=== PATIENT | female | born 1930 | race Caucasian/White ===

== ENCOUNTER 2016-03-15 15:14 | Inpatient (IN) | payer OTHER ==
--- NOTE | 2016-03-15 15:29 | PDOC ---
History of Present Illness - General Chief Complaint: Irregular Heart Beat Stated Complaint: COUGH Time Seen by Provider: 03/15/16 15:18 - History of Present Illness Initial Comments: 03/15/16 15:31 85-year-old female with a past medical history of hypertension, hyperlipidemia, anemia, and gout She has no cardiac history, and no prior history of atrial fibrillation Patient is complaining of a one-week history of cough, associated with a one- week history of progressive dyspnea on exertion The cough is occasionally productive of white sputum, but mostly non-productive She denies any fevers or chills She states that she did have the flu vaccine and the pneumonia vaccine She denies any feelings of palpitations, or chest pain She denies any leg swelling or calf pain She denies any nausea vomiting or diarrhea She denies any sore throat or earache She states she went to her primary care physician's office today, and was found to be in atrial fibrillation and sent to the emergency department She denies feeling palpitations at all Remainder the review of systems is negative Past History - Past Medical History Allergies/Adverse Reactions: Allergies Allergy/AdvReac Type Severity Reaction Status Date / Time No Known Drug Allergies Allergy Verified 03/15/16 15:19 Home Medications: Ambulatory Orders Cholecalciferol (Vitamin D3) [Vitamin D3] 2,000 unit PO DAILY 06/17/14 Pravastatin Sodium 20 mg PO HS 06/17/14 Vitamin B Complex [Super B Complex] 1 tab PO DAILY 06/17/14 Acetaminophen [Tylenol .Regular Strength -] 650 mg PO Q4H PRN #0 tablet Cyanocobalamin [Vitamin B12 -] 500 mcg PO MoWeFr@1000 #0 tablet 06/27/14 Febuxostat [Uloric -] 40 mg PO DAILY #0 tab 06/27/14 Levothyroxine [Synthroid -] 112 mcg PO DAILY@0700 #0 tablet 06/27/14 Losartan Potassium [Cozaar -] 25 mg PO DAILY #0 tablet 06/27/14 Polyethylene Glycol 3350 [Miralax 119 gm Btl -] 17 gm PO DAILY #0 bottle Sennosides/Docusate Sodium [Pericolace -] 2 each PO HS PRN #0 tablet 06/27/14 Vitamin B Comp W-C [Total B with C -] 1 each PO DAILY #0 tablet 06/27/14 Duloxetine HCl [Cymbalta -] 30 mg PO HS 03/15/16 Metoprolol Succinate [Toprol XL -] 25 mg PO HS 03/15/16 Anemia: No Asthma: No Cancer: No Cardiac Disorders: No CVA: No COPD: No CHF: No Dementia: No Diabetes: No GI Disorders: No Disorders: No HTN: Yes Hypercholesterolemia: Yes Liver Disease: No Seizures: No Thyroid Disease: Yes (HYPO) - Surgical History Abdominal Surgery: No Appendectomy: Yes Cardiac Surgery: No Cholecystectomy: No Lung Surgery: No Neurologic Surgery: No Orthopedic Surgery: No - Psycho/Social/Smoking Cessation Hx Smoking History: Former smoker Have you smoked in the past 12 months: No If you are a former smoker, when did you quit?: 2003 Hx Alcohol Use: Yes (SOCIAL) Drug/Substance Use Hx: No Substance Use Type: Alcohol Hx Substance Use Treatment: No Review of Systems - Review of Systems Able to Perform ROS?: Yes Comments:: 03/15/16 15:33 12 point review of systems is as per history of present illness and otherwise negative *Physical Exam - Physical Exam Comments: 03/15/16 15:33 Physical exam GENERAL: The patient is awake, alert, and fully oriented, and in no apparent distress. HEAD: Normal with no signs of trauma. EYES: Sclera anicteric ENT: Mucous membranes moist NECK: Normal range of motion, supple LUNGS: Breath sounds equal, clear to auscultation bilaterally. No wheezes, and no crackles. HEART: Irregularly irregular rate and rhythm, normal S1 and S2 without murmur, rub or gallop. ABDOMEN: Soft, nontender, normoactive bowel sounds. No guarding, no rebound. No masses appreciated. EXTREMITIES: Normal range of motion, no edema. No clubbing or cyanosis. No cords, erythema, or tenderness. No calf tenderness or pedal edema NEUROLOGICAL: Cranial nerves II through XII grossly intact. Normal speech, normal gait. PSYCH: Normal mood, normal affect. SKIN: Warm, Dry, normal turgor, no rashes or lesions noted. ED Treatment Course - LABORATORY CBC & Chemistry Diagram: 03/16/16 07:00 03/16/16 07:00 Medical Decision Making - Medical Decision Making 03/15/16 15:57 EKG Atrial fibrillation with a ventricular response rate of 95 Normal axis Normal QRS duration QTc Nonspecific ST-T waves 03/15/16 15:59 [id number] score 4-indicating need for anticoagulation 03/15/16 16:40 Chest c-ape-[id number] heart with mild pulmonary vascular congestion 03/15/16 17:[address] HusainUuvv-[id number]-ulfgav with Eliquis and IV Lasix Laboratory Results - last 24 hr 03/15/16 03/15/16 03/15/16 15:33 15:44 15:44 WBC 5.5 RBC 4.59 Hgb 13.8 Hct 42.3 MCV 92.1 MCHC 32.5 RDW 12.8 Plt Count 372 MPV 8.1 INR 1.05 Sodium 135 L Potassium 4.8 Chloride 99 Carbon Dioxide 26 Anion Gap 10 BUN 29 H Creatinine 1.4 H Creat Clearance w eGFR 35.82 Random Glucose 97 Calcium 9.4 Magnesium 1.7 L D Total Bilirubin 0.6 AST 28 ALT 19 Alkaline Phosphatase 64 Creatine Kinase Troponin I Total Protein 7.0 Albumin 3.5 03/15/16 15:44 WBC RBC Hgb Hct MCV MCHC RDW Plt Count MPV INR Sodium Potassium Chloride Carbon Dioxide Anion Gap BUN Creatinine Creat Clearance w eGFR Random Glucose Calcium Magnesium Total Bilirubin AST ALT Alkaline Phosphatase Creatine Kinase 165 H Troponin I < 0.03 L Total Protein Albumin 03/15/16 17:40 Case and all results discussed with Dr. Hansen Would like the patient admitted to Dr. Juan's service, and he will put in the orders Impression- New-onset atrial fibrillation, mild congestive heart failure, dyspnea on exertion *DC/Admit/Observation/Transfer Diagnosis at time of Disposition: Atrial fibrillation, new onset, Dyspnea on exertion Congestive heart failure (CHF) Qualifiers: Congestive heart failure type: unspecified congestive heart failure type Congestive heart failure chronicity: acute Qualified Code(s): I50.9 - Heart failure, unspecified - Discharge Dispostion Condition at time of disposition: Stable Admit: Yes
[2016-03-15 16:22] LABS: INR 1.05 (0.82-1.09); PROTHROMBIN TIME (PATIENT) 11.4 SEC (10.2-13.0)
[2016-03-15 16:32] LABS: CPK(DFH) 165 IU/L (26-140)
[2016-03-15 16:33] LABS: ALBUMIN 3.5 g/dl (3.5-5.0); BILIRUBIN,TOTAL 0.6 mg/dl (0.2-1.0); CALCIUM 9.4 mg/dl (8.4-10.2); CREATININE 1.4 mg/dl (0.6-1.3); MAGNESIUM 1.7 mg/dL (1.8-2.4)
[2016-03-15 16:38] LABS: MCHC 32.5 g/dl (32.0-36.0); MEAN CELL VOLUME 92.1 fl (80-96); MEAN PLT VOLUME 8.1 fl (7.5-11.1); PLATELET COUNT 372 K/MM3 (134-434); RDW 12.8 % (11.6-15.6); WHITE BLOOD COUNT 5.5 K/mm3 (4.0-10.0)
[2016-03-15] MEDS ORDERED: FUROSEMIDE 40 MG/4 ML INJECTABLE VIAL IVPUSH ONE (16:41)
[2016-03-15 17:00] LABS: TROPONIN I (DFP) < 0.03 ng/ml (0.03-0.50)
[2016-03-15] MEDS ORDERED: APIXABAN 2.5 MG TABLET PO ONE (17:18)
[2016-03-15] MEDS ORDERED: FUROSEMIDE 40 MG/4 ML INJECTABLE VIAL ONE (17:20)
[2016-03-15 17:28] LABS: CK MB 3.6 ng/ml (0.3-4.0)
[2016-03-15 18:26] LABS: URINE APPEARANCE Clear; URINE BILIRUBIN Negative (NEGATIVE); URINE BLOOD Negative (NEGATIVE); URINE GLUCOSE (UA) Negative (NEGATIVE); URINE KETONE Negative (NEGATIVE); URINE LEUK ESTERASE Negative (NEGATIVE); URINE NITRITE Negative (NEGATIVE); URINE PROTEIN Negative (NEGATIVE); URINE UROBILINOGEN 0.2 E.U/dl (0.2-1.0)
[2016-03-15 18:30] LABS: URINE COLOR YELLOW
[2016-03-15] MEDS ORDERED: SENNOSIDES/DOCUSATE COMBO (SENNA PLUS) TABLET (UD) PO PRN (18:54)
[2016-03-15] MEDS ORDERED: ACETAMINOPHEN 325 MG TABLET (FP) PO PRN (18:54)
[2016-03-15 19:07] VITALS: BMI 31.0
[2016-03-15] MEDS ORDERED: METOPROLOL SUCCINATE 25 MG TAB.SR.24H (FP) PO SCH (22:00)
[2016-03-15] MEDS ORDERED: APIXABAN 2.5 MG TABLET PO SCH (22:00)
[2016-03-15] MEDS: METOPROLOL TARTRATE 25 MG TABLET (FP) PO SCH (22:02)
[2016-03-15] MEDS: DULoxetine HCL 30 MG CAPSULE.DR (FP) PO SCH (22:03)
[2016-03-15] MEDS: ATORVASTATIN CA 10 MG TABLET (FP) PO SCH (22:04)
[2016-03-16] MEDS: LEVOTHYROXINE NA 112 MCG TABLET (FP) PO SCH (06:10)
[2016-03-16] MEDS ORDERED: PT OWN MED DRAWER 7, Y5N ONE ×2 (09:17→12:37)
[2016-03-16 09:21] LABS: BASOPHIL 0.5 % (0-2.0); MCH 29.8 pg (25.7-33.7); MCHC 32.6 g/dl (32.0-36.0); MEAN CELL VOLUME 91.2 fl (80-96); MEAN PLT VOLUME 8.7 fl (7.5-11.1); NEUTROPHILS 66.8 % (42.8-82.8); PLATELET COUNT 376 K/MM3 (134-434); RDW 12.9 % (11.6-15.6); WHITE BLOOD COUNT 6.2 K/mm3 (4.0-10.0)
[2016-03-16] MEDS: LOSARTAN POTASSIUM 25 MG TABLET PO SCH (09:24)
[2016-03-16] MEDS: METOPROLOL TARTRATE 25 MG TABLET (FP) PO SCH (09:24)
[2016-03-16] MEDS: FEBUXOSTAT 40 MG TAB PO SCH (09:24)
[2016-03-16] MEDS: PANTOPRAZOLE 40 MG TABLET (FP) PO SCH (09:24)
[2016-03-16] MEDS: CHOLECALCIFEROL (VITAMIN D3) 1,000 UNIT TABLET (FP) PO SCH (09:25)
[2016-03-16] MEDS: POLYETHYLENE GLYCOL 3350 119 GM BTL PO SCH (09:25)
[2016-03-16] MEDS: FUROSEMIDE 40 MG/4 ML INJECTABLE VIAL IVPB SCH (09:25)
[2016-03-16 09:32] LABS: ALBUMIN 3.4 g/dl (3.5-5.0); BILIRUBIN,TOTAL 0.7 mg/dl (0.2-1.0); CREATININE 1.2 mg/dl (0.6-1.3); TOT PROT 6.8 g/dl (6.4-8.3)
--- NOTE | 2016-03-16 09:49 | HP ---
Admitting History and Physical - Primary Care Physician PCP: Antonio Elena - Admission Chief Complaint: I had trouble breathing History of Present Illness: Ms Danielle is a very pleasant 85 year old female who comes in with complaints of coughing and shortness of breath. She notes last week she was coughing a lot , it was non-productive. Then over the weekend she noted she had severe dyspnea with minimal exertion. She says she would walk to the bathroom and become short of breath, she would need to rest for her breathing to improve. She denies fevers, chills, lightheadedness, dizziness, passing out, chest pain or pressure , orthopnea, nausea, vomiting, diarrhea, constipation, difficulty or pain on urination, or swelling. She was evaluated by Dr Elena and was found to be in atrial fibrillation which is new. She was sent in for further evaluation. Currently she is feeling fine and is without complaint, however she has not gotten up to walk yet today. History Source: Patient Limitations to Obtaining History: No Limitations - Past Medical History Cardiovascular: Yes: HTN, Hyperlipdemia ...: No Endocrine: Yes: Hypothyroidism - Past Surgical History Past Surgical History: Yes: Joint Replacement - Smoking History Smoking history: Former smoker Have you smoked in the past 12 months: No Aproximately how many cigarettes per day: 20 If you are a former smoker, when did you quit?: 2003 - Alcohol/Substance Use Hx Alcohol Use: Yes (SOCIAL) History of Substance Use: reports: None - Social History ADL: Independent History of Recent Travel: No Home Medications - Allergies Allergies/Adverse Reactions: Allergies Allergy/AdvReac Type Severity Reaction Status Date / Time No Known Drug Allergies Allergy Verified 03/15/16 15:19 - Home Medications Home Medications: Ambulatory Orders Cholecalciferol (Vitamin D3) [Vitamin D3] 2,000 unit PO DAILY 06/17/14 Pravastatin Sodium 20 mg PO HS 06/17/14 Vitamin B Complex [Super B Complex] 1 tab PO DAILY 06/17/14 Acetaminophen [Tylenol .Regular Strength -] 650 mg PO Q4H PRN #0 tablet Cyanocobalamin [Vitamin B12 -] 500 mcg PO MoWeFr@1000 #0 tablet 06/27/14 Febuxostat [Uloric -] 40 mg PO DAILY #0 tab 06/27/14 Levothyroxine [Synthroid -] 112 mcg PO DAILY@0700 #0 tablet 06/27/14 Losartan Potassium [Cozaar -] 25 mg PO DAILY #0 tablet 06/27/14 Polyethylene Glycol 3350 [Miralax 119 gm Btl -] 17 gm PO DAILY #0 bottle Sennosides/Docusate Sodium [Pericolace -] 2 each PO HS PRN #0 tablet 06/27/14 Vitamin B Comp W-C [Total B with C -] 1 each PO DAILY #0 tablet 06/27/14 Duloxetine HCl [Cymbalta -] 30 mg PO HS 03/15/16 Metoprolol Succinate [Toprol XL -] 25 mg PO HS 03/15/16 Family Disease History - Family Disease History Family History: Unremarkable Review of Systems Findings/Remarks: Full review of systems obtained, as per HPI and otherwise negative Physical Examination Vital Signs: Vital Signs Temperature 98.4 F 03/16/16 06:00 Pulse Rate 87 03/16/16 06:00 Respiratory Rate 19 03/16/16 06:00 Blood Pressure 124/84 03/16/16 06:00 O2 Sat by Pulse Oximetry (%) 100 03/16/16 07:53 Constitutional: Yes: Well Nourished, No Distress, Calm Eyes: Yes: Conjunctiva Clear, EOM Intact HENT: Yes: Atraumatic, Normocephalic Cardiovascular: Yes: Pulse Irregular. No: Tachycardia, Gallop, Murmur, Rub Respiratory: Yes: Regular, CTA Bilaterally. No: Rales, Rhonchi, Wheezes Gastrointestinal: Yes: Normal Bowel Sounds, Soft. No: Distention, Tenderness Extremities: Yes: WNL Edema: No Labs: CBC, BMP 03/16/16 07:00 Imaging - Results Chest X-ray: Report Reviewed, Image Reviewed EKG: Image Reviewed Problem List - Problems (1) Atrial fibrillation, new onset Assessment/Plan: -patient with symptomatic new onset atrial fibrillation -admitted to telemetry -currently rate controlled, but in the high 90s at rest currently on telemetry -on metoprolol 25mg bid, may need to increase -cardiology consulted -CHADS-Vasc2 shows 4% risk, will benefit from anticoagulation Code(s): I48.91 - UNSPECIFIED ATRIAL FIBRILLATION (2) Congestive heart failure (CHF) Assessment/Plan: -suspect this is more secondary to atrial fibrillation as opposed to true CHF -patient says she does not when her last ECHO was but thinks it was a long time ago -will obtain ECHO -currently receiving IV lasix -will continue, will d/w cardiology if needs long term care social worker lasix vs heart rate control only Code(s): I50.9 - HEART FAILURE, UNSPECIFIED Qualifiers: Congestive heart failure type: unspecified congestive heart failure type Congestive heart failure chronicity: acute Qualified Code(s): I50.9 - Heart failure, unspecified (3) Gout Assessment/Plan: -continue uloric Code(s): M10.9 - GOUT, UNSPECIFIED (4) Hypertension Assessment/Plan: -continue cozaar and metoprolol -currently on IV lasix as well -well controlled -may need adjustment since in atrial fibrillation and may need to increase metoprolol Code(s): I10 - ESSENTIAL (PRIMARY) HYPERTENSION (5) Hypothyroid Assessment/Plan: -checking TSH and free T4 since new onset atrial fibrillation -continue levothyroxine at home dose but may need to decrease it Code(s): E03.9 - HYPOTHYROIDISM, UNSPECIFIED
[2016-03-16] MEDS ORDERED: APIXABAN 2.5 MG TABLET PO SCH (10:00)
[2016-03-16] MEDS ORDERED: VITAMIN B COMPLEX PO SCH (10:00)
[2016-03-16] MEDS: VITAMIN B COMPLEX W/C COMBO TABLET (FP) PO SCH (10:30)
[2016-03-16 12:19] LABS: FREE T4 1.55 ng/dl (0.76-1.46); THYROID STIMULATING HORMONE 12.1 uIU/ml (0.358-3.74)
--- NOTE | 2016-03-16 13:46 | EKG ---
Test Reason : Blood Pressure : / mmHG Vent. Rate : 095 BPM Atrial Rate : 088 BPM P-R Int : 000 ms QRS Dur : 098 ms QT Int : 366 ms P-R-T Axes : 000 079 054 degrees QTc Int : 459 ms ATRIAL FIBRILLATION ABNORMAL ECG WHEN COMPARED WITH ECG OF 27-JUN-2014 09:16, ATRIAL FIBRILLATION HAS REPLACED SINUS RHYTHM Confirmed by ZULY CONNOLLY MD ([id number]) on 03/16/2016 1:46:32 PM Referred By: DR KELLY Confirmed By:ZULY CONNOLLY MD
--- NOTE | 2016-03-16 14:55 | CON.CARD ---
Consult Consult Specialty:: Cardiology Referred by:: Tarik Saleh MD Reason for Consultation:: Newly diagnosed afib - History of Present Illness Chief Complaint: Dyspnea, non-productive cough History of Present Illness: Ms Danielle is a very pleasant 85 year old female with h/o HTN, chol, hypithyroidism, hyperuricemia, chronic lower back pain presented with complaints of coughing and shortness of breath with minimal exertion. She says she would walk to the bathroom and become short of breath, she would need to rest for her breathing to improve. She denies fevers, chills, lightheadedness, dizziness, passing out, chest pain or pressure, orthopnea, paroxysmal nocturnal dyspnea, palpitations, nausea, vomiting, diarrhea, constipation, difficulty or pain on urination, or lower extremity swelling. She was evaluated by Dr Elena and was found to be in atrial fibrillation which is new. She was sent in for further evaluation. Currently she feels fatigued, however she has not gotten up to walk yet today. - History Source History Provided By: Patient Limitations to Obtaining History: No Limitations - Past Medical History Cardio/Vascular: Yes: HTN, Hyperlipdemia ...: No Endocrine: Yes: Hypothyroidism - Past Surgical History Past Surgical History: Yes: Joint Replacement - Alcohol/Substance Use Hx Alcohol Use: Yes (SOCIAL) History of Substance Use: reports: None - Smoking History Smoking history: Former smoker Have you smoked in the past 12 months: No Aproximately how many cigarettes per day: 20 If you are a former smoker, when did you quit?: 2003 - Social History ADL: Independent History of Recent Travel: No Home Medications - Allergies Allergies/Adverse Reactions: Allergies Allergy/AdvReac Type Severity Reaction Status Date / Time No Known Drug Allergies Allergy Verified 03/15/16 15:19 - Home Medications Home Medications: Ambulatory Orders Cholecalciferol (Vitamin D3) [Vitamin D3] 2,000 unit PO DAILY 06/17/14 Pravastatin Sodium 20 mg PO HS 06/17/14 Vitamin B Complex [Super B Complex] 1 tab PO DAILY 06/17/14 Acetaminophen [Tylenol .Regular Strength -] 650 mg PO Q4H PRN #0 tablet Cyanocobalamin [Vitamin B12 -] 500 mcg PO MoWeFr@1000 #0 tablet 06/27/14 Febuxostat [Uloric -] 40 mg PO DAILY #0 tab 06/27/14 Levothyroxine [Synthroid -] 112 mcg PO DAILY@0700 #0 tablet 06/27/14 Losartan Potassium [Cozaar -] 25 mg PO DAILY #0 tablet 06/27/14 Polyethylene Glycol 3350 [Miralax 119 gm Btl -] 17 gm PO DAILY #0 bottle Sennosides/Docusate Sodium [Pericolace -] 2 each PO HS PRN #0 tablet 06/27/14 Vitamin B Comp W-C [Total B with C -] 1 each PO DAILY #0 tablet 06/27/14 Duloxetine HCl [Cymbalta -] 30 mg PO HS 03/15/16 Metoprolol Succinate [Toprol XL -] 25 mg PO HS 03/15/16 Review of Systems - Review of Systems Constitutional: reports: Lethargy, Malaise - Risk Factors Known Risk Factors: Yes: Age, Hypercholesterolemia, Hypertension Vital Signs: Vital Signs Temperature 98.2 F 03/16/16 14:08 Pulse Rate 88 03/16/16 14:08 Respiratory Rate 18 03/16/16 14:08 Blood Pressure 120/55 03/16/16 14:08 O2 Sat by Pulse Oximetry (%) 97 03/16/16 14:08 Constitutional: Yes: No Distress, Calm Neck: Yes: Supple Respiratory: Yes: Regular, CTA Bilaterally Gastrointestinal: Yes: Normal Bowel Sounds, Soft, Abdomen, Obese Cardiovascular: Yes: Pulse Irregular JVD: No Carotid Bruit: No Heart Sounds: Yes: S1, S2 Edema: No - Other Data Labs, Other Data: CBC, BMP 03/16/16 07:00 03/16/16 07:00 INR, PTT INR 1.05 (0.82-1.09) 03/15/16 15:33 Afib @ 86 c/w previous study 12/20/2015, now in rate-controlled afib Echo: Report Reviewed Ejection Fraction %: LVEF > or = 40 % Imaging - Results Chest X-ray: Report Reviewed (Mild CHF) Problem List - Problems (1) Atrial fibrillation, new onset Code(s): I48.91 - UNSPECIFIED ATRIAL FIBRILLATION (2) Dyspnea on exertion Code(s): R06.09 - OTHER FORMS OF DYSPNEA (3) Hypertension Code(s): I10 - ESSENTIAL (PRIMARY) HYPERTENSION Qualifiers: Hypertension type: essential hypertension Qualified Code(s): I10 - Essential (primary) hypertension (4) Hypothyroid Code(s): E03.9 - HYPOTHYROIDISM, UNSPECIFIED Qualifiers: Hypothyroidism type: unspecified Qualified Code(s): E03.9 - Hypothyroidism, unspecified (5) Hyperlipidemia Code(s): E78.5 - HYPERLIPIDEMIA, UNSPECIFIED Qualifiers: Hyperlipidemia type: pure hypercholesterolemia Qualified Code(s): E78.0 - Pure hypercholesterolemia (6) Hyperuricemia Code(s): E79.0 - HYPERURICEMIA W/O SIGNS OF INFLAM ARTHRIT AND TOPHACEOUS DIS (7) Acute on chronic diastolic (congestive) heart failure Code(s): I50.33 - ACUTE ON CHRONIC DIASTOLIC (CONGESTIVE) HEART FAILURE Assessment/Plan 03/26/2016 Normal LV size and fxn, diastolic dysfunction, no sig valve abnl 1. Newly diagnosed persistent atrial fibrillation [id number] 2. Acute on chronic diastolic failure 3. Hyperuricemia 4. HTN/HCVD 5. Hypothyroidism - TFTs noted P:1. Agree with increase metoprolol 25 bid, continue losartan and pravachol 2. Diuresis with monitor diuretic response, renal fxn and electrolytes 3. Agree with starting Eliquis 5 bid (weight>60 kg and Cr<1.5) given elevated risk score 4. Thank you for consultative opportunity
--- NOTE | 2016-03-16 15:38 | EKG ---
Test Reason : Blood Pressure : / mmHG Vent. Rate : 085 BPM Atrial Rate : 441 BPM P-R Int : 000 ms QRS Dur : 096 ms QT Int : 406 ms P-R-T Axes : 000 072 056 degrees QTc Int : 483 ms ATRIAL FIBRILLATION ABNORMAL ECG WHEN COMPARED WITH ECG OF 15-MAR-2016 15:40, NO SIGNIFICANT CHANGE WAS FOUND Confirmed by PEARL HOOVER MD ([id number]) on 03/16/2016 3:38:02 PM Referred By: MD MERLOS Confirmed By:PEARL HOOVER MD
[2016-03-16] MEDS: APIXABAN 5 MG TABLET PO SCH (21:24)
[2016-03-16] MEDS: DULoxetine HCL 30 MG CAPSULE.DR (FP) PO SCH (21:24)
[2016-03-16] MEDS: ATORVASTATIN CA 10 MG TABLET (FP) PO SCH (21:24)
[2016-03-16] MEDS: METOPROLOL TARTRATE 50 MG TABLET (FP) PO SCH (21:24)
[2016-03-17] MEDS: LEVOTHYROXINE NA 112 MCG TABLET (FP) PO SCH (06:32)
[2016-03-17 09:15] LABS: BASOPHIL 0.9 % (0-2.0); EOSINOPHIL 2.6 % (0-4.5); MCH 30.4 pg (25.7-33.7); MCHC 33.4 g/dl (32.0-36.0); MEAN CELL VOLUME 90.9 fl (80-96); NEUTROPHILS 56.4 % (42.8-82.8); PLATELET COUNT 385 K/MM3 (134-434); RDW 12.8 % (11.6-15.6); WHITE BLOOD COUNT 7.2 K/mm3 (4.0-10.0)
[2016-03-17] MEDS ORDERED: PT OWN MED DRAWER 7, Y5N ONE (09:19)
[2016-03-17] MEDS: FUROSEMIDE 40 MG/4 ML INJECTABLE VIAL IVPB SCH (09:27)
[2016-03-17] MEDS: APIXABAN 5 MG TABLET PO SCH ×2 (09:27→21:24)
[2016-03-17] MEDS: PANTOPRAZOLE 40 MG TABLET (FP) PO SCH (09:28)
[2016-03-17] MEDS: METOPROLOL TARTRATE 50 MG TABLET (FP) PO SCH ×2 (09:28→21:24)
[2016-03-17] MEDS: LOSARTAN POTASSIUM 25 MG TABLET PO SCH (09:28)
[2016-03-17] MEDS: CHOLECALCIFEROL (VITAMIN D3) 1,000 UNIT TABLET (FP) PO SCH (09:29)
[2016-03-17] MEDS: POLYETHYLENE GLYCOL 3350 119 GM BTL PO SCH (09:30)
[2016-03-17] MEDS: FEBUXOSTAT 40 MG TAB PO SCH (09:30)
[2016-03-17] MEDS: VITAMIN B COMPLEX W/C COMBO TABLET (FP) PO SCH (09:30)
[2016-03-17 09:38] LABS: CALCIUM 9.4 mg/dl (8.4-10.2); CREATININE 1.3 mg/dl (0.6-1.3); MAGNESIUM 1.9 mg/dL (1.8-2.4); PHOSPHOROUS 3.8 mg/dl (2.5-4.6)
--- NOTE | 2016-03-17 09:38 | PN ---
Progress Note, Physician Chief Complaint: Ms Danielle says she is feeling well today. No cp, sob, n/v. - Current Medication List Current Medications: Active Medications Acetaminophen (Tylenol -) 650 mg PO Q6H PRN PRN Reason: TEMP > 100.5 Apixaban (Eliquis -) 5 mg PO BID [facility] Last Admin: 03/17/16 09:27 Dose: 5 mg Atorvastatin Calcium (Lipitor -) 10 mg PO HS [facility] Last Admin: 03/16/16 21:24 Dose: 10 mg Cholecalciferol (Vitamin D3 -) 2,000 unit PO DAILY [facility] Last Admin: 03/17/16 09:29 Dose: 2,000 unit Cyanocobalamin (Vitamin B12 -) 500 mcg PO MoWeFr@1000 [facility] Last Admin: 03/17/16 09:25 Dose: 500 mcg Duloxetine HCl (Cymbalta -) 30 mg PO HS [facility] Last Admin: 03/16/16 21:24 Dose: 30 mg Febuxostat (Uloric -) 40 mg PO DAILY [facility] Last Admin: 03/17/16 09:30 Dose: 40 mg Furosemide (Lasix Injection -) 20 mg IVPB DAILY [facility] Last Admin: 03/17/16 09:27 Dose: 20 mg Levothyroxine Sodium (Synthroid -) 112 mcg PO DAILY@0700 [facility] Last Admin: 03/17/16 06:32 Dose: 112 mcg Losartan Potassium (Cozaar -) 25 mg PO DAILY [facility] Last Admin: 03/17/16 09:28 Dose: 25 mg Metoprolol Tartrate (Lopressor -) 50 mg PO BID [facility] Last Admin: 03/17/16 09:28 Dose: 50 mg Multivitamins (Total B With C -) 1 each PO DAILY [facility] Last Admin: 03/17/16 09:30 Dose: 1 each Non-Formulary Medication (Vitamin B Complex [Super B Complex]) 1 tab PO DAILY [facility] Pantoprazole Sodium (Protonix -) 40 mg PO DAILY [facility] Last Admin: 03/17/16 09:28 Dose: 40 mg Polyethylene Glycol (Miralax (For Daily Use) -) 17 gm PO DAILY [facility] Last Admin: 03/17/16 09:30 Dose: 17 grams Senna/Docusate Sodium (Pericolace -) 2 tablet PO HS PRN PRN Reason: CONSTIPATION - Objective Vital Signs: Vital Signs Temperature 98.0 F 03/17/16 06:24 Pulse Rate 86 03/17/16 06:24 Respiratory Rate 18 03/17/16 06:24 Blood Pressure 115/81 03/17/16 06:24 O2 Sat by Pulse Oximetry (%) 94 L 03/17/16 06:24 Constitutional: Yes: Well Nourished, No Distress, Calm Cardiovascular: Yes: Pulse Irregular. No: Tachycardia, Gallop, Murmur, Rub Respiratory: Yes: Regular, CTA Bilaterally. No: Rales, Rhonchi, Wheezes Gastrointestinal: Yes: Normal Bowel Sounds, Soft. No: Distention, Tenderness Extremities: Yes: WNL Edema: No Labs: CBC, BMP 03/17/16 08:05 INR, PTT INR 1.05 (0.82-1.09) 03/15/16 15:33 Problem List - Problems (1) Atrial fibrillation, new onset Code(s): I48.91 - UNSPECIFIED ATRIAL FIBRILLATION (2) Congestive heart failure (CHF) Code(s): I50.9 - HEART FAILURE, UNSPECIFIED Qualifiers: Congestive heart failure type: unspecified congestive heart failure type Congestive heart failure chronicity: acute Qualified Code(s): I50.9 - Heart failure, unspecified (3) Gout Code(s): M10.9 - GOUT, UNSPECIFIED (4) Hypertension Code(s): I10 - ESSENTIAL (PRIMARY) HYPERTENSION Qualifiers: Hypertension type: essential hypertension Qualified Code(s): I10 - Essential (primary) hypertension (5) Hypothyroid Code(s): E03.9 - HYPOTHYROIDISM, UNSPECIFIED Qualifiers: Hypothyroidism type: unspecified Qualified Code(s): E03.9 - Hypothyroidism, unspecified (6) UTI (urinary tract infection) Code(s): N39.0 - URINARY TRACT INFECTION, SITE NOT SPECIFIED Assessment/Plan (1) Atrial fibrillation, new onset Assessment/Plan: -case d/w cardiology -HR in the 90s at rest, when ambulating yesterday was tachycardic -metoprolol was increased, first dose last night -encouraged ambulation -titration of metoprolol per cardiology -continue eliquis Code(s): I48.91 - UNSPECIFIED ATRIAL FIBRILLATION (2) Congestive heart failure (CHF) Assessment/Plan: -possible diastolic dysfunction -continue lasix for diuresis -patient says breathing is better Code(s): I50.9 - HEART FAILURE, UNSPECIFIED Qualifiers: Congestive heart failure type: unspecified congestive heart failure type Congestive heart failure chronicity: acute Qualified Code(s): I50.9 - Heart failure, unspecified (3) Gout Assessment/Plan: -continue uloric Code(s): M10.9 - GOUT, UNSPECIFIED (4) Hypertension Assessment/Plan: -currently well controlled -however if metoprolol is increased, suspect other antihypertensives will need adjustment Code(s): I10 - ESSENTIAL (PRIMARY) HYPERTENSION (5) Hypothyroid Assessment/Plan: -both TSH and FT4 are elevated -? sick euthyroid -endocrinology consulted Code(s): E03.9 - HYPOTHYROIDISM, UNSPECIFIED (6) UTI -UA is negative but urine culture positive -recheck urinalysis -if with UTI, would explain afib with rvr and thyroid tests -but since urinalysis is normal, will not start on antibiotics -Dr Jesus from [place] made aware of consult and will see and evaluate if antibiotics are appropriate
[2016-03-17] MEDS ORDERED: CYANOCOBALAMIN 1,000 MCG TABLET (FP) PO SCH (10:00)
--- NOTE | 2016-03-17 10:35 | PN ---
Progress Note (short form) - Note Progress Note: ID Consult dictated Asymptomatic bacteruria No treatment advised.
--- NOTE | 2016-03-17 12:54 | CONS ---
DATE OF CONSULTATION: DATE OF DICTATION: 03/17/2016 HISTORY OF PRESENT ILLNESS: The patient is an 85-year-old female who is evaluated for positive urine culture. She was admitted to the hospital on March 15, 2016, with complaints of cough and shortness of breath. She had presented to her primary care doctor with complaints of worsening shortness of breath on exertion and nonproductive cough. She was found to be in atrial fibrillation and was referred to the emergency room. Upon evaluation, she is now found to have a positive urine culture for gram-negative rods. Patient has no urinary tract complaints. She denies any dysuria or hematuria. No complaints of urgency or frequency. She has had no suprapubic or flank discomfort. No fever or chills. Patient denies history of recurrent urinary tract infections. No recent antibiotic therapy. PAST MEDICAL HISTORY: Positive for congestive heart failure, hypertension, hyperlipidemia, hypothyroidism, chronic low back pain, gouty arthritis. ALLERGIES: No known allergies. MEDICATIONS: Synthroid, Toprol, losartan, pravastatin, Cymbalta. SOCIAL HISTORY: Former smoker. Lives at home. SYSTEMS REVIEW: Neurologic: No loss of consciousness, seizure activity, focal weakness. Cardiac: As per HPI. Respiratory: As per HPI. Gastrointestinal: Negative vomiting or diarrhea. Genitourinary: As per HPI. LABORATORY DATA: White count 7.2, hematocrit 43.2, platelet count 385. BUN 31, creatinine 1.3. Urinalysis: Negative. Blood cultures: Negative. Urine culture: Growing a gram-negative bret. PHYSICAL EXAMINATION: General: She is awake and alert. She is not acutely toxic appearing, in no acute distress. Vital Signs: Temperature 98.0, blood pressure 115/81, pulse 86, regular, respirations 18 per minute. HEENT: Sclerae are anicteric. Cardiac: Heart sounds irregular. S1, S2. Lungs: Clear. Abdomen: Soft. No suprapubic or flank tenderness. Extremities: Edema 1+. IMPRESSION: 1. Asymptomatic bacteruria. 2. New onset atrial fibrillation. RECOMMENDATIONS: In the absence of urinary tract symptoms or pyuria, would not treat positive urine culture. Observe off antibiotic therapy. Thank you for the kind referral. Mignon [id number]
[2016-03-17 17:34] LABS: URINE APPEARANCE Clear; URINE BILIRUBIN Negative (NEGATIVE); URINE BLOOD Negative (NEGATIVE); URINE COLOR YELLOW; URINE GLUCOSE (UA) Negative (NEGATIVE); URINE KETONE Negative (NEGATIVE); URINE LEUK ESTERASE Negative (NEGATIVE); URINE NITRITE Positive (NEGATIVE); URINE PROTEIN Negative (NEGATIVE); URINE UROBILINOGEN 0.2 E.U/dl (0.2-1.0)
[2016-03-17] MEDS: ATORVASTATIN CA 10 MG TABLET (FP) PO SCH (21:24)
[2016-03-17] MEDS: DULoxetine HCL 30 MG CAPSULE.DR (FP) PO SCH (21:24)
[2016-03-17 22:27] VITALS: TEMP 98.1
[2016-03-18 06:18] VITALS: BP 127/61; PULSE 80
[2016-03-18] MEDS: LEVOTHYROXINE NA 112 MCG TABLET (FP) PO SCH (07:05)
[2016-03-18 08:02] LABS: EOSINOPHIL 2.5 % (0-4.5); MCH 29.8 pg (25.7-33.7); MCHC 32.6 g/dl (32.0-36.0); MEAN CELL VOLUME 91.2 fl (80-96); MEAN PLT VOLUME 8.6 fl (7.5-11.1); NEUTROPHILS 57.4 % (42.8-82.8); PLATELET COUNT 394 K/MM3 (134-434); RDW 13.2 % (11.6-15.6)
[2016-03-18 08:10] LABS: CALCIUM 9.3 mg/dl (8.4-10.2); CREATININE 1.3 mg/dl (0.6-1.3); PHOSPHOROUS 3.2 mg/dl (2.5-4.6)
--- NOTE | 2016-03-18 10:11 | DS ---
Physical Examination Vital Signs: Vital Signs Temperature 98.1 F 03/18/16 06:00 Pulse Rate 80 03/18/16 06:00 Respiratory Rate 18 03/18/16 06:00 Blood Pressure 127/61 03/18/16 06:00 O2 Sat by Pulse Oximetry (%) 97 03/18/16 08:56 Constitutional: Yes: No Distress, Calm HENT: Yes: Atraumatic, Normocephalic Neck: Yes: Supple, Trachea Midline Cardiovascular: Yes: Pulse Irregular, S1, S2 Respiratory: Yes: Regular, CTA Bilaterally. No: Rales, Rhonchi, Wheezes Gastrointestinal: Yes: Normal Bowel Sounds, Soft. No: Distention, Tenderness Edema: No Neurological: Yes: Alert, Oriented Labs: CBC, BMP 03/18/16 07:00 03/18/16 07:00 Discharge Summary Reason For Visit: A-FIB,ONSET CHF, DYSPNEA Current Active Problems Acute on chronic diastolic (congestive) heart failure (Acute) Atrial fibrillation, new onset (Acute) Congestive heart failure (CHF) (Acute) Dyspnea on exertion (Acute) Hyperlipidemia (Acute) Hyperuricemia (Acute) UTI (urinary tract infection) (Acute) Hospital Course: 85 yo female sent in to hospital for SOB, found to be in new onset afib with systolic dysfunction. Started on eliquis, increased metoprolol, lasix. HR has been improved, shortness of breath improved as well. Noted to have bacteriuria (with negative UA, so ID consulted (no treatment recommended) and TSH was elevated with elevated T4 as well, so endocrine to consult today. If no other treatment required, and since breathing improved, possible discharge today (to stay on increased metoprolol, Eliquis, and lasix for now. Patient also notes that has been having a lot of phlegm, especially at night when trying to sleep ( ex-smoker) so will discharge on Spiriva as well to see if congestion improves. Condition: Stable - Instructions Referrals: Antonio Elena MD [Staff Physician] - Jose Husain MD [Staff Physician] - Disposition: HOME - Home Medications Comprehensive Discharge Medication List: Ambulatory Orders Cholecalciferol (Vitamin D3) [Vitamin D3] 2,000 unit PO DAILY 06/17/14 Pravastatin Sodium 20 mg PO HS 06/17/14 Vitamin B Complex [Super B Complex] 1 tab PO DAILY 06/17/14 Acetaminophen [Tylenol .Regular Strength -] 650 mg PO Q4H PRN #0 tablet Cyanocobalamin [Vitamin B12 -] 500 mcg PO MoWeFr@1000 #0 tablet 06/27/14 Febuxostat [Uloric -] 40 mg PO DAILY #0 tab 06/27/14 Levothyroxine [Synthroid -] 112 mcg PO DAILY@0700 #0 tablet 06/27/14 Losartan Potassium [Cozaar -] 25 mg PO DAILY #0 tablet 06/27/14 Polyethylene Glycol 3350 [Miralax 119 gm Btl -] 17 gm PO DAILY #0 bottle Sennosides/Docusate Sodium [Pericolace -] 2 each PO HS PRN #0 tablet 06/27/14 Vitamin B Comp W-C [Total B with C -] 1 each PO DAILY #0 tablet 06/27/14 Duloxetine HCl [Cymbalta -] 30 mg PO HS 03/15/16 Apixaban [Eliquis -] 5 mg PO BID #60 tablet 03/18/16 Furosemide 20 mg PO DAILY #30 tablet 03/18/16 Metoprolol Tartrate [Lopressor -] 50 mg PO BID #60 tablet 03/18/16 Tiotropium [place] [Spiriva Respimat] 4 gm IH DAILY #1 mist.inhal 03/18/16
[2016-03-18] MEDS ORDERED: PT OWN MED DRAWER 7, Y5N ONE (10:41)
[2016-03-18] MEDS: FUROSEMIDE 40 MG/4 ML INJECTABLE VIAL IVPB SCH (10:46)
[2016-03-18] MEDS: LOSARTAN POTASSIUM 25 MG TABLET PO SCH (10:47)
[2016-03-18] MEDS: CHOLECALCIFEROL (VITAMIN D3) 1,000 UNIT TABLET (FP) PO SCH (10:48)
[2016-03-18] MEDS: METOPROLOL TARTRATE 50 MG TABLET (FP) PO SCH (10:48)
[2016-03-18] MEDS: FEBUXOSTAT 40 MG TAB PO SCH (10:49)
[2016-03-18] MEDS: VITAMIN B COMPLEX W/C COMBO TABLET (FP) PO SCH (10:49)
[2016-03-18] MEDS: PANTOPRAZOLE 40 MG TABLET (FP) PO SCH (10:49)
[2016-03-18] MEDS: APIXABAN 5 MG TABLET PO SCH (10:49)
[2016-03-18] MEDS: POLYETHYLENE GLYCOL 3350 119 GM BTL PO SCH (10:50)
--- NOTE | 2016-03-20 14:45 | EKG ---
Test Reason : Blood Pressure : / mmHG Vent. Rate : 091 BPM Atrial Rate : 115 BPM P-R Int : 000 ms QRS Dur : 096 ms QT Int : 386 ms P-R-T Axes : 000 074 048 degrees QTc Int : 474 ms ATRIAL FIBRILLATION POOR R WAVE PROGRESSION ABNORMAL ECG WHEN COMPARED WITH ECG OF 16-MAR-2016 08:04, Delayed R wave progression is now noted (due to lead placement?) Confirmed by ZULY CONNOLLY MD ([id number]) on 03/20/2016 2:45:04 PM Referred By: MD ROBERTS Confirmed By:ZULY CONNOLLY MD
== END 2016-03-18 11:30 | disposition home or self-care (01) | DRG 308 ==
LOC: FER 15:14 → FM/S 18:13
PROVIDERS: ADMIT Internal Medicine; ATTEND Internal Medicine
DX: I48.1 Persistent atrial fibrillation (principal); I50.33 Acute on chronic diastolic (congestive) heart failure; I11.0 Hypertensive heart disease with heart failure; E78.5 Hyperlipidemia, unspecified; D64.9 Anemia, unspecified; M10.9 Gout, unspecified; E03.9 Hypothyroidism, unspecified; M54.5 Low back pain; Z87.891 Personal history of nicotine dependence; R82.71 Bacteriuria
CPT/HCPCS: 36415; 71010-TC; 80048; 80053; 81003; 82550; 82553; 83735; 83880; 84100; 84439; 84443; 84484; 85025; 85027; 85610; 87086; 87186; 93005; 93010; 93306-TC; 99284-25

== ENCOUNTER 2016-07-31 06:04 | Day surgery (SDC) | payer OTHER ==
[2016-07-31 10:59] VITALS: BMI 31.9
[2016-07-31] MEDS ORDERED: LIDOCAINE VISCOUS 2% ORAL/TOP 20 ML UNIT-DOSE CUP MM ONE (12:00)
[2016-07-31 12:26] VITALS: TEMP 97.7
[2016-07-31 14:08] VITALS: BP 127/77; PULSE 59
--- NOTE | 2016-07-31 16:13 | EKG ---
Test Reason : Blood Pressure : / mmHG Vent. Rate : 058 BPM Atrial Rate : 058 BPM P-R Int : 186 ms QRS Dur : 098 ms QT Int : 458 ms P-R-T Axes : 051 081 064 degrees QTc Int : 449 ms SINUS BRADYCARDIA OTHERWISE NORMAL ECG WHEN COMPARED WITH ECG OF 16-MAR-2016 15:32, SINUS RHYTHM HAS REPLACED ATRIAL FIBRILLATION VENT. RATE HAS DECREASED BY 33 BPM Confirmed by YAMILE KINCAID MD ([id number]) on 07/31/2016 4:12:48 PM Referred By: YAMILE KINCAID Confirmed By:YAMILE KINCAID MD
== END 2016-07-31 13:30 | disposition home or self-care (01) ==
LOC: JASU-ENDO 06:04
PROVIDERS: ATTEND Internal Medicine Cardiovascular Disease
PROC: 5A2204Z Restoration of Cardiac Rhythm, Single (ICD-10-PCS; 2016-07-31)
PROC: B246ZZ4 Ultrasonography of Right and Left Heart, Transesophageal (ICD-10-PCS; principal; 2016-07-31 11:30)
DX: I48.91 Unspecified atrial fibrillation (principal)
CPT/HCPCS: 92960; 93005; 93010; 93312; 93325